=== PATIENT | female | born 1990 | race Caucasian/White ===

== ENCOUNTER 2022-11-01 07:52 | Emergency (ER) | payer MEDICAID, SELFPAY ==
--- NOTE | ~2022-11-01 | CT_ITS ---
EXAMINATION: CT ABDOMEN AND PELVIS WITH CONTRAST CLINICAL INFORMATION: Abdominal pain, nausea and vomiting COMPARISON: None available. TECHNIQUE: Multidetector volumetric images were obtained from the superior aspect of the liver through the pubic symphysis following administration 85 mL of Omnipaque 350 intravenous contrast. Sagittal and coronal reformatted images were obtained on the technologist's workstation. Oral contrast: No This CT examination was performed using dose optimization techniques as appropriate, variously including the following: *Automated exposure control *Adjustment of mA and/or kV according to patient size (this includes techniques or standardized protocols for targeted exams where dose is matched to indication/reason for exam; i.e. extremities or head) *Use of iterative reconstruction technique DLP: 610 mGy-cm FINDINGS: LUNG BASES: The visualized lung bases are unremarkable. LIVER, GALLBLADDER, AND BILIARY TREE: The liver is enlarged measuring 19.7 cm in cephalocaudad dimension but is normal in shape and attenuation. No focal hepatic lesion or biliary ductal dilatation is present. The gallbladder is unremarkable with no evidence of radiopaque gallstones, gallbladder wall thickening, or obvious pericholecystic inflammatory changes. PANCREAS: Unremarkable. SPLEEN: Unremarkable. ADRENAL GLANDS: Unremarkable. KIDNEYS AND URETERS: The kidneys are normal in size, shape, and attenuation. No hydronephrosis, hydroureter, or calculi seen. No perinephric stranding. BLADDER: Unremarkable. GASTROINTESTINAL TRACT: The small and large bowel are unremarkable. The appendix is unremarkable. ABDOMINAL WALL: No significant hernia is appreciated. LYMPH NODES: Normal. VASCULAR: Unremarkable. PELVIC VISCERA: An anteverted uterus is present. Fallopian tube clips are present. An abnormal adnexal mass or free intraperitoneal fluid is not seen. OSSEOUS STRUCTURES: There is mild scoliosis convex to the left. There is mild anterior wedging of T11. No bony destructive lesions. CT/CT abdomen pelvis w IV con IMPRESSION: 1. A cause for the patient's abdominal pain, nausea and vomiting has not been found. 2. Incidental note made of mild hepatomegaly, Fallopian tube clips and mild scoliosis. Fleischner guidelines were followed.
--- NOTE | ~2022-11-01 | US_ITS ---
EXAMINATION: US OBSTETRICAL ULTRASOUND CLINICAL INFORMATION: Vaginal bleeding with positive test COMPARISON: None available.. LMP: Unknown. TECHNIQUE: Both transabdominal and endovaginal scanning was performed. FINDINGS: The uterus appears unremarkable. There is a normal endometrium and a gestational sac is not seen. The right ovary measures 2.5 x 1.7 x 1.6 cm and appears normal. The left ovary measures 2.2 x 1.7 x 1.4 cm and appears normal. A moderate amount of free fluid is present in the pelvis. No ectopic is visualized. US/US OB pelvic and transvaginal IMPRESSION: No intrauterine is identified at this time. Correlation with beta hCG levels is recommended, as nonvisualization of a gestational sac could be due to an early stage of . Alternatively, lack of an intrauterine gestational sac may also be seen with missed or ectopic , although no adnexal mass is seen to strongly suggest ectopic . Short-term sonographic follow-up and serial beta hCG levels are recommended to assess for development of an intrauterine gestational sac.
[2022-11-01 07:59] VITALS: PULSE 81; RESP 18; TEMP 37.2; O2SAT 96; BMI 29.2
--- NOTE | 2022-11-01 08:08 | ED_ITS ---
HPI - General Adult General Chief complaint: Abdominal Pain Stated complaint: Miscarriage Time Seen by Provider: 11/01/22 08:05 Source: patient Mode of arrival: ambulatory Limitations: no limitations History of Present Illness HPI narrative: Patient is a 32 year old assigned female at with a history of 1 miscar riage presenting to the emergency department today with abdominal pain. Patient states that she had a positive test approximately 2 weeks ago and started to have heavy vaginal bleeding since 3AM on Sunday10/30/2022. Started to have worsening right lower quadrant abdominal pain yesterday along with nausea. Reports having Filshie clip type tubal ligation during her 8 years ago. Patient denies any dizziness, lightheadedness, fever, chills, blurry vision, double vision, loss of vision, chest pain, night sweats, pain with urination, increased urinary frequency, increased urinary urgency, blood in her stool, syncope or a near syncopal episode, recent trauma or falls, bowel inc ontinence, bladder incontinence, bowel retention, bladder retention, or any other complaints at this time. Onset (ago): day(s) (2) Location: abdomen Radiation: back Severity: mild Severity scale (1-10): 3 Quality: aching Pain Consistency: constant Relieving factors: none Exacerbating factors: none Associated symptoms: nausea/vomiting Treatments prior to arrival: none Related Data Allergies Allergy/AdvReac Type Severity Reaction Status Date / Time No Known Allergies Allergy Verified 11/01/22 08:02 Review of Systems Review of Systems: Yes all other systems are reviewed and are negative Constitutional: Constitutional: Reports as per HPI Eyes: Eyes: Reports no additional eye complaints, Denies blurry vision, Denies change in vision, Denies diplopia, Denies eye discharge, Denies loss of vision and Denies eye pain ENT: Denies dizziness Cardiovascular: Cardiovascular: Reports no additional cardiovascular complaints and Reports dyspnea Respiratory: Respiratory: Reports dyspnea Gastrointestinal: Gastrointestinal: Reports abdominal pain, Reports nausea and Reports vomiting Genitourinary: Genitourinary: Reports abnormal vaginal bleeding Musculoskeletal: Musculoskeletal: Reports no additional musculoskeletal complaints, Denies numbness and Denies tingling Neurologic: Denies dizziness, Denies loss of vision, Denies numbness and Denies tingling Psychiatric: Psychiatric: Reports no additional psychiatric complaints Endocrine: Endocrine: Reports no additional endocrine complaints Hematologic/Lymphatic: Hematologic/Lymphatic: Reports no additional hematologic/lymphatic complaints Allergic/Immunologic: Allergic/Immunologic: Reports no additional allergic/immunologic complaints [facility] Past Medical History Attestation statement: The following information was validated with the patient. Source: old records reviewed and nursing notes reviewed Social History Social History Advance Directives: No Advance Directives Information Provided: No Physical Exam ED Vital Signs: Vital Signs - 24 hr 11/01/22 07:59 11/01/22 12:00 Temperature 98.9 F 98.1 F Pulse Rate 81 107 H Respiratory Rate 18 14 Blood Pressure 102/65 Pulse Oximetry 96 100 Oxygen Delivery Method Room Air Room Air BMI result Body Mass Index 29.2 Const General: cooperative and in distress (hyperventilating, appears to be in pain) moderate Nutritional Appearance: average body habitus Orientation/consciousness: oriented to person, oriented to place and patient oriented x3 Limitations: no limitations HENMT Head: Yes normal to inspection Ears: hearing grossly normal bilaterally General nose exam: Normal external nose present Face and sinus: Yes normal facial exam Mouth: Normal oral and palatal mucosa present, no drooling and no muffled voice Eyes General: appearance normal, both eyes and all related structures Periorbital: periorbital findings normal Eyelids: Yes eyelids normal Conjunctivae: conjunctivae normal Pupils: Equal, round and reactive pupils present EOM: EOMs intact bilaterally Neck Neck: Yes normal visual inspection Chest Chest palpation & inspection: normal inspection of the chest Resp Effort & Inspection: no audible wheezes and symmetric chest movement Auscultation: clear to auscultation bilaterally Cardio Rate: regular rate Rhythm: regular rhythm GI Inspection: Yes normal to inspection and Yes striae Palpation (GI): Soft to palpation, not firm, Tenderness to palpation present (GI) other (diffuse) and no guarding Neuro General: oriented to person, oriented to place and patient oriented x3 Cranial nerves: Yes Equal, round and reactive pupils present Cognition (Neuro): normal cognition Motor exam (neuro): 5/5 motor strength present throughout Sensory Exam: Normal double simultaneous stimulation for sensation Coordination: [id number] test normal Extrem General: Yes normal to inspection, Yes full ROM and Yes capillary refill normal Psych Appearance: grossly normal Mental Status: mental status grossly normal Affect: normal affect Attitude: cooperative Thought process: Normal thought process present Thought content: Normal thought content present Insight: Good insight present (Psych) Medications Administered Discontinued Medications Generic Name Dose Route Start Last Admin Trade Name Jena PRN Reason Stop Dose Admin Sodium Chloride 1,000 mls @ 999 mls/hr 11/01/22 09:15 11/01/22 12:23 Ns IV 11/01/22 10:15 Infused .Q1H1M SRINIVASA Infusion Iohexol 85 ml 11/01/22 11:23 11/01/22 11:24 Iohexol 350 Mg/Ml 100 Ml Infus..Btl IV 11/01/22 11:24 85 ml ONCE ONE Administration Ketorolac Tromethamine 15 mg 11/01/22 11:05 11/01/22 11:51 Ketorolac Tromethamine 15 Mg/Ml Vial IVPUSH 11/01/22 11:06 15 mg ONCE ONE Administration Lorazepam 1 mg 11/01/22 11:05 11/01/22 11:49 Lorazepam 2 Mg/Ml Vial IVPUSH 11/01/22 11:06 1 mg ONCE ONE Administration Morphine Sulfate 4 mg 11/01/22 08:22 11/01/22 08:27 Morphine Sulfate 4 Mg/Ml Cartridge IVPUSH 11/01/22 08:23 4 mg ONCE ONE Administration Protocol Ondansetron HCl 4 mg 11/01/22 08:22 11/01/22 08:26 Ondansetron Hcl 4 Mg/2 Ml Vial IVPUSH 11/01/22 08:23 4 mg ONCE ONE Administration Ondansetron HCl 4 mg 11/01/22 11:02 11/01/22 11:50 Ondansetron Hcl 4 Mg/2 Ml Vial IVPUSH 11/01/22 11:03 4 mg ONCE ONE Administration Medical Decision Making Medical Decision Making [facility] Narrative: Patient is a 32 year old assigned female at with a history of 1 miscarriage presenting to the emergency department today with abdominal pain. Patient's physical exam showed mild tenderness to palpation of the abdomen but was otherwise unremarkable. Patient's blood work showed a slightly elevated WBC count of 12.2 which is consistent with a stress reaction. Patient's labs otherwise unremarkable. Patient's hcg was negative. Patient's urine showed no acute process. Patient's pelvic US and abdominal/pelvis CT showed no acute process. I explained my physical exam findings as well as all test results to the patient. I answered all questions asked by the patient. Patient received IV pain medication and IV fluids which she stated helped her symptoms significantly. I stressed the importance of the patient taking her medication as prescribed. I stressed the importance of the patient following up with her primary care provider and an OBGYN. I stressed the importance of the patient returning to the emergency department immediately if her symptoms were to worsen or if she were to develop any dizziness, shortness of breath, difficulty breathing, chest pain, blurry vision, loss of vision, nausea, vomiting, abdomina l pain, fever, chills, back pain, or any other complaints. Patient verbalized agreement and understanding with this treatment plan and discharge. Differential Diagnosis Differential Diagnoses: The differential diagnosis associated with the presentation includes abdominal pain Lab Data MDM Lab Attestation statement: I reviewed the patient's lab results. 11/01/22 08:11 11/01/22 08:11 Labs: Lab Results 11/01/22 11/01/22 11/01/22 Range/Units 08:11 08:11 08:11 WBC 12.2 H (4.8-10.8) X10*3/uL RBC 5.57 H (4.20-5.50) X10*6/uL Hgb 17.2 H (12.0-16.0) g/dl Hct 47.6 H (37.0-47.0) % MCV 85.5 (80.0-98.0) fL MCH 30.9 (27.0-33.0) pg MCHC 36.1 H (31.0-35.0) g/dl RDW 12.3 (11.0-16.0) % Plt Count 273 (160-400) X10*3/uL MPV 9.7 (9.4-12.3) fL Immature Gran % (Auto) 0.4 (0.0-0.4) % Neut % (Auto) 91.1 H (45-73) % Lymph % (Auto) 6.7 L (20-40) % [place] % (Auto) 1.5 L (2-11) % Eos % (Auto) 0.1 (0-4) % Baso % (Auto) 0.2 (0-2) % Lymph # (Auto) 0.8 L (1.2-4.9) X10*3/uL [place] # (Auto) 0.2 (0.1-1.2) X10*3/uL Eos # (Auto) 0.0 (0.0-0.4) X10*3/uL Baso # (Auto) 0.0 (0.0-0.2) X10*3/uL Abs Immat Gran (auto) 0.05 H (0.00-0.03) X10*3/uL Absolute Neuts (auto) 11.1 H (2.0-8.3) x10*3/uL Absolute Nucleated RBC 0.000 (0.0-0.012) X10*3/uL Nucleated RBC % (auto) 0.0 (0.0-0.2) /100WBC Smear Tech's Comments VERIFIED Sodium 140 (135-145) mmol/L Potassium 3.6 (3.3-5.1) mmol/L Chloride 100 (96-108) mmol/L Carbon Dioxide 18 L (22-29) mmol/L Anion Gap 26 H (12-20) BUN 28 H (9-16) mg/dL Creatinine 1.08 (0.5-1.4) mg/dL Estim Creat Clear Calc 73.7 Estimated GFR 58 Random Glucose 144 H (60-115) mg/dL Calcium 10.2 (8.4-10.2) mg/dL Total Bilirubin 1.1 H (0.0-1.0) mg/dL Direct Bilirubin 0.2 (0.0-0.5) mg/dL AST 16 (5-31) U/L ALT 11 (0-31) U/L Alkaline Phosphatase 58 (39-117) U/L Total Protein 7.9 (6.5-8.0) g/dL Albumin 4.8 (3.5-5.0) g/dL Lipase 13 (8-78) U/L Beta HCG, Quant < 2 mIU/mL Urine Color Urine Appearance Urine pH (5.0-9.0) Ur Specific [place] (1.005-1.025) Urine Protein (Neg-Trace) mg/dL Urine Glucose (UA) (Negative) mg/dL Urine Ketones (Negative) mg/dL Urine Blood (Negative) Urine Nitrite (Negative) Ur Leukocyte Esterase (Negative) Urine RBC (0-2) /HPF Urine WBC (0-5) /HPF Ur Squamous Epith Cells (0-2) /HPF Urine Bacteria (None Seen) Hyaline Casts (0-2) /LPF Urine Test (NEGATIVE) Blood Type Antibody Screen 11/01/22 11/01/22 11/01/22 Range/Units 09:16 10:29 10:29 WBC (4.8-10.8) X10*3/uL RBC (4.20-5.50) X10*6/uL Hgb (12.0-16.0) g/dl Hct (37.0-47.0) % MCV (80.0-98.0) fL MCH (27.0-33.0) pg MCHC (31.0-35.0) g/dl RDW (11.0-16.0) % Plt Count (160-400) X10*3/uL MPV (9.4-12.3) fL Immature Gran % (Auto) (0.0-0.4) % Neut % (Auto) (45-73) % Lymph % (Auto) (20-40) % [place] % (Auto) (2-11) % Eos % (Auto) (0-4) % Baso % (Auto) (0-2) % Lymph # (Auto) (1.2-4.9) X10*3/uL [place] # (Auto) (0.1-1.2) X10*3/uL Eos # (Auto) (0.0-0.4) X10*3/uL Baso # (Auto) (0.0-0.2) X10*3/uL Abs Immat Gran (auto) (0.00-0.03) X10*3/uL Absolute Neuts (auto) (2.0-8.3) x10*3/uL Absolute Nucleated RBC (0.0-0.012) X10*3/uL Nucleated RBC % (auto) (0.0-0.2) /100WBC Smear Tech's Comments Sodium (135-145) mmol/L Potassium (3.3-5.1) mmol/L Chloride (96-108) mmol/L Carbon Dioxide (22-29) mmol/L Anion Gap (12-20) BUN (9-16) mg/dL Creatinine (0.5-1.4) mg/dL Estim Creat Clear Calc Estimated GFR Random Glucose (60-115) mg/dL Calcium (8.4-10.2) mg/dL Total Bilirubin (0.0-1.0) mg/dL Direct Bilirubin (0.0-0.5) mg/dL AST (5-31) U/L ALT (0-31) U/L Alkaline Phosphatase (39-117) U/L Total Protein (6.5-8.0) g/dL Albumin (3.5-5.0) g/dL Lipase (8-78) U/L Beta HCG, Quant mIU/mL Urine Color Yellow Urine Appearance Sl Cloudy Urine pH 8.0 (5.0-9.0) Ur Specific [place] >= 1.030 H (1.005-1.025) Urine Protein 30 (1+) H (Neg-Trace) mg/dL Urine Glucose (UA) Negative (Negative) mg/dL Urine Ketones 40 (Negative) mg/dL Urine Blood Large (3+) H (Negative) Urine Nitrite Negative (Negative) Ur Leukocyte Esterase Trace H (Negative) Urine RBC >20 H (0-2) /HPF Urine WBC 0-5 (0-5) /HPF Ur Squamous Epith Cells 3-5 (0-2) /HPF Urine Bacteria None Seen (None Seen) Hyaline Casts 0-2 (0-2) /LPF Urine Test NEGATIVE (NEGATIVE) Blood Type A Positive Antibody Screen NEGATIVE Independent Interpretation I performed an independent interpretation of an: Ultrasound and CT Scan Interpretation: My interpretation is in agreement with the radiologist's impression of these imaging studies. EXAMINATION: CT ABDOMEN AND PELVIS WITH CONTRAST? CLINICAL INFORMATION: Abdominal pain, nausea and vomiting? COMPARISON: None available. ? TECHNIQUE: Multidetector volumetric images were obtained from the superior aspect of the liver through the pubic symphysis following administration 85 mL of Omnipaque 350 intravenous contrast. Sagittal and coronal reformatted images were obtained on the technologist's workstation.? Oral contrast: No This CT examination was performed using dose optimization techniques as appropriate, variously including the following: *Automated exposure control *Adjustment of mA and/or kV according to patient size (this includes techniques or standardized protocols for targeted exams where dose is matched to indication/reason for exam; i.e. extremities or head) *Use of iterative reconstruction technique DLP: 610 mGy-cm FINDINGS: LUNG BASES: The visualized lung bases are unremarkable.? LIVER, GALLBLADDER, AND BILIARY TREE: The liver is enlarged measuring 19.7 cm in cephalocaudad dimension but is normal in shape and attenuation.? No focal hepatic lesion or biliary ductal dilatation is present. The gallbladder is unremarkable with no evidence of radiopaque gallstones, gallbladder wall thickening, or obvious pericholecystic inflammatory changes.? PANCREAS: Unremarkable.? SPLEEN: Unremarkable.? ADRENAL GLANDS: Unremarkable.? KIDNEYS AND URETERS: The kidneys are normal in size, shape, and attenuation. No hydronephrosis, hydroureter, or calculi seen. No perinephric stranding. ? BLADDER: Unremarkable.? GASTROINTESTINAL TRACT: The small and large bowel are unremarkable. The appendix is unremarkable.? ABDOMINAL WALL: No significant hernia is appreciated.? LYMPH NODES: Normal. VASCULAR: Unremarkable. PELVIC VISCERA: An anteverted uterus is present. Fallopian tube clips are present. An abnormal adnexal mass or free intraperitoneal fluid is not seen.? OSSEOUS STRUCTURES: There is mild scoliosis convex to the left. There is mild anterior wedging of T11. No bony destructive lesions.? CT/CT abdomen pelvis w IV con IMPRESSION: 1.? A cause for the patient's abdominal pain, nausea and vomiting has not been found. 2.? Incidental note made of mild hepatomegaly, Fallopian tube clips and mild scoliosis. ? Fleischner guidelines were followed. Dictated By: Jin Kerr MD Signed By: Electronically signed by Jin Kerr MD 11/01/22 1236 EXAMINATION:? US OBSTETRICAL ULTRASOUND CLINICAL INFORMATION:? Vaginal bleeding with positive test COMPARISON:? None available..? LMP: Unknown. TECHNIQUE: Both transabdominal and endovaginal scanning was performed. ? FINDINGS: The uterus appears unremarkable. There is a normal endometrium and a gestational sac is not seen. The right ovary measures 2.5 x 1.7 x 1.6 cm and appears normal. The left ovary measures 2.2 x 1.7 x 1.4 cm and appears normal. A moderate amount of free fluid is present in the pelvis. No ectopic is visualized. US/US OB pelvic and transvaginal IMPRESSION: No intrauterine is identified at this time. Correlation with beta hCG levels is recommended, as nonvisualization of a gestational sac could be due to an early stage of . Alternatively, lack of an intrauterine gestational sac may also be seen with missed or ectopic , although no adnexal mass is seen to strongly suggest ectopic . Short-term sonographic follow-up and serial beta hCG levels are recommended to assess for development of an intrauterine gestational sac.? Dictated By: Jin Kerr MD Signed By: Electronically signed by Jin Kerr MD 11/01/22 0935 Discharge Plan Discharge Clinical Impression: Abdominal pain Patient Disposition: Home, Self-Care Instructions: Abdominal Pain (ED) Additional Instructions: Follow up with your primary care provider and your OBGYN. Return to the emergency department immediately if your symptoms worsen or if you develop any dizziness, shortness of breath, difficulty breathing, chest pain, blurry vision, loss of vision, nausea, vomiting, abdominal pain, fever, chills, back pain, or any other complaints. Referrals: [facility] [place] Group] (Call to establish and follow up with a primary care provider. If you already have a primary care provider, please fo llow up with them.) [facility] [[facility]] (Call to establish and follow up wit h a primary care provider. If you already have a primary care provider, please follow up with them.) [facility] [Provider Group] (Call to establish and follow up with a primary care provider. If you already have a primary care provider, please follow up with them.) Saad Maria MD [Physician] - (Call to establish and follow up with an OBGYN provider. ) Stand Alone Forms: Work/School Release Interventions: ED Discharge Assessment Last Done: 11/01/22 13:45 Print Language: Malawian
[2022-11-01 08:18] LABS: Basophils Percent Auto 0.2 % (0-2); Eosinophils Percent Auto 0.1 % (0-4); Hematocrit 47.6 % (37.0-47.0); Hemoglobin 17.2 g/dl (12.0-16.0); Imm Gran Abs Auto 0.05 X10*3/uL (0.00-0.03); Imm Gran Pct Auto 0.4 % (0.0-0.4); Lymphocytes Absolute Auto 0.8 X10*3/uL (1.2-4.9); Lymphocytes Percent Auto 6.7 % (20-40); MANUAL DIFF FLAG SCAN; Mean Corpuscular HGB Conc 36.1 g/dl (31.0-35.0); Mean Corpuscular Hemoglobin 30.9 pg (27.0-33.0); Mean Corpuscular Volume 85.5 fL (80.0-98.0); Mean Platelet Volume 9.7 fL (9.4-12.3); Monocytes Absolute Auto 0.2 X10*3/uL (0.1-1.2); Monocytes Percent Auto 1.5 % (2-11); Neutrophils Absolute Auto 11.1 x10*3/uL (2.0-8.3); Neutrophils Percent Auto 91.1 % (45-73); Platelet Count 273 X10*3/uL (160-400); Red Blood Count 5.57 X10*6/uL (4.20-5.50); Red Cell Distribution Width 12.3 % (11.0-16.0); SCAN SMEAR FLAG 1; White Blood Count 12.2 X10*3/uL (4.8-10.8)
[2022-11-01] MEDS: ondansetron HCL 4 MG/2 ML VIAL IVPUSH ×2 (08:26→11:50)
[2022-11-01] MEDS: Morphine Sulfate 4 MG/ML CARTRIDGE IVPUSH (08:27)
[2022-11-01 08:39] LABS: SLIDE REVIEW VERIFIED
[2022-11-01 08:45] LABS: HCG Quantitative < 2 mIU/mL
[2022-11-01 08:58] LABS: Alanine Aminotransferase 11 U/L (0-31); Albumin Level 4.8 g/dL (3.5-5.0); Alkaline Phosphatase 58 U/L (39-117); Anion Gap 26 (12-20); Aspartate Amino Transferase 16 U/L (5-31); Bilirubin Direct 0.2 mg/dL (0.0-0.5); Bilirubin Total 1.1 mg/dL (0.0-1.0); Blood Urea Nitrogen 28 mg/dL (9-16); Calcium 10.2 mg/dL (8.4-10.2); Carbon Dioxide 18 mmol/L (22-29); Chloride 100 mmol/L (96-108); Creatinine Clr Calc Pharmacy 73.7; Estimated Glomerular Filt Rate 58; Glucose Random 144 mg/dL (60-115); Lipase 13 U/L (8-78); Potassium 3.6 mmol/L (3.3-5.1); Sodium 140 mmol/L (135-145); Total Protein 7.9 g/dL (6.5-8.0)
[2022-11-01] MEDS: 0.9 % Sodium Chloride 1,000 ML 999 ML IV (09:23)
[2022-11-01 10:39] LABS: UPreg QC Valid YES; Urine Pregnancy NEGATIVE (NEGATIVE)
[2022-11-01 10:47] LABS: Color Urine Yellow; Glucose Urine UA Negative (Negative); Leukocyte Esterase Urine Trace (Negative); Nitrite Urine Negative (Negative); Specific Gravity - Urine >= 1.030 (1.005-1.025); UMIC TRIGGER UACC YES; Urine Blood Large (3+) (Negative); Urine Ketones 40 mg/dL (Negative); Urine Protein 30 (1+) mg/dL (Neg-Trace)
[2022-11-01 10:49] LABS: Appearance Urine Sl Cloudy
[2022-11-01 10:51] LABS: Bacteria Urine None Seen (None Seen); Hyaline Casts Urine 0-2 /LPF (0-2); RBC Urine >20 /HPF (0-2); WBC Urine 0-5 /HPF (0-5)
[2022-11-01] MEDS: iohexoL 350 MG/ML 100 ML INFUS..BTL 85 ML IV (11:24)
[2022-11-01] MEDS: LORazepam 2 MG/ML VIAL 1 MG IVPUSH (11:49)
[2022-11-01] MEDS: Ketorolac Tromethamine 15 MG/ML VIAL IVPUSH (11:51)
--- NOTE | 2022-11-01 11:59 | PC.NURSE ---
pt a&ox3, vss, pt medicated per provider order for 5/10 epigastric/mid back pain. no new orders at this time.
[2022-11-01 12:00] VITALS: BP 102/65; PULSE 107; RESP 14; TEMP 36.7; O2SAT 100
== END 2022-11-01 13:49 | disposition home or self-care (01) ==
PROVIDERS: Emergency Provider Emergency Medicine
DX: O20.9 Hemorrhage in early pregnancy, unspecified (principal); Z3A.00 Weeks of gestation of pregnancy not specified; R10.2 Pelvic and perineal pain; Z79.899 Other long term (current) drug therapy
CPT/HCPCS: 36415; 74177; 76801; 76817; 80053; 81001; 81025; 82248; 83690; 84702; 85025; 86850; 86900; 86901; 96361; 96374; 96375; 96376; 99284; J1885; J2060; J2270; J2405; Q9967

== ENCOUNTER 2022-11-01 23:47 | Emergency (ER) | payer MEDICAID, SELFPAY ==
[2022-11-01 23:52] VITALS: BP 142/109; PULSE 97; RESP 24; TEMP 36.5; O2SAT 98; BMI 28.3
[2022-11-02] MEDS: Ondansetron ODT 4 MG TAB.RAPDIS TRANSLINGU
--- NOTE | 2022-11-02 00:10 | PC.NURSE ---
Pt. moved to ED bed 21. On patient monitor at this time.
[2022-11-02 00:11] VITALS: BP 112/57; PULSE 72; RESP 22; TEMP 36.9; O2SAT 95
[2022-11-02 00:23] LABS: MANUAL DIFF FLAG NO
--- NOTE | 2022-11-02 00:23 | ED_ITS ---
HPI - Nausea/Vomiting/Diarrhea General Chief complaint: Nausea/Vomiting/Diarrhea Stated complaint: n/v Time Seen by Provider: 11/02/22 00:23 Source: patient Mode of arrival: ambulatory Limitations: no limitations History of Present Illness HPI Narrative: Patient will history of cannabis abuse just seen earlier today for abdominal pain had a CT scan done which was negative pelvic ultrasound was also negative patient is not comes back as having a diffuse abdominal pain with nausea vomiting patient very anxious on arrival vomited several times prior to arrival patient had similar complaints in the past Related Data Previous Rx's Medication Instructions Recorded lorazepam 1 mg tablet (Ativan) 1 mg PO BID PRN anxiety #20 tabs 11/02/22 ondansetron 4 mg disintegrating 4 mg PO Q6-8H PRN nausea and 11/02/22 tablet vomiting #10 tabs Allergies Allergy/AdvReac Type Severity Reaction Status Date / Time No Known Allergies Allergy Verified 11/01/22 23:58 Review of Systems Review of Systems: Yes all other systems are reviewed and are negative [facility]LY [facility] Social History Social History Alcohol intake: current Alcohol intake frequency: holidays/special occasions only Smoked in Last 30 Days: Yes Use of substances other than those prescribed or required for medical reasons: Yes Substance Use Type: Marijuana Substance Use Frequency: Daily Advance Directives: No Advance Directives Information Provided: Yes Patient : No Physical Exam Vital Signs: Vital Signs: Last Vital Signs Temp 98.8 F 11/02/22 04:50 Pulse 80 11/02/22 04:50 Resp 14 11/02/22 04:50 BP 112/71 11/02/22 04:50 Pulse Ox 95 11/02/22 04:50 O2 Del Method Room Air 11/02/22 04:50 BMI result Body Mass Index 28.3 Appearance: Alert. Oriented X3. Patient very anxious. Eyes: PERRLA, No Nystagmus ENT: Pharynx normal. Oral Mucosa moist Neck: Normal inspection. Neck supple. CVS: Normal heart rate and rhythm. Pulses normal. Respiratory: No respiratory distress. Equal air entry bilateral, no wheezing/rales/rhonchi Abdomen: Soft mild diffuse tenderness Bowel sounds are present, no mass palpable, no CVA tenderness Skin: Skin warm and dry. Normal skin color. Normal skin turgor. Extremities: No lower extremity edema. No calf tenderness Neuro: Oriented X 3. No motor deficit. Medications Administered Discontinued Medications Generic Name Dose Route Start Last Admin Trade Name Jena PRN Reason Stop Dose Admin Sodium Chloride 1,000 mls @ 999 mls/hr 11/02/22 00:25 11/02/22 00:33 Ns IV 11/02/22 01:25 999 mls/hr .Q1H1M ONE Administration Lorazepam 2 mg 11/02/22 00:25 11/02/22 00:32 Lorazepam 2 Mg/Ml Vial IVPUSH 11/02/22 00:26 2 mg ONCE ONE Administration Ondansetron HCl 4 mg 11/01/22 23:58 11/02/22 00:00 Ondansetron Odt 4 Mg Tab.Rapdis TRANSLINGU 11/01/22 23:59 4 mg ONCE ONE Administration Prochlorperazine Edisylate 10 mg 11/02/22 00:25 11/02/22 00:32 Prochlorperazine Edisylate 10 Mg/2 Ml Vial IVPUSH 11/02/22 00:26 10 mg ONCE ONE Administration Medical Decision Making Medical Decision Making MDM Narrative: Patient with increased anxiety and cannabis use with history of similar episodes in the past with vomiting but this time was worse than before patient responded to IV Ativan Compazine taking fluids vital stable discharge patient back to home Lab Data [facility] Lab Attestation statement: I reviewed the patient's lab results. 11/02/22 00:18 11/02/22 00:18 Labs: Lab Results 11/02/22 11/02/22 Range/Units 00:18 00:18 WBC 12.5 H (4.8-10.8) X10*3/uL RBC 5.51 H (4.20-5.50) X10*6/uL Hgb 16.8 H (12.0-16.0) g/dl Hct 46.8 (37.0-47.0) % MCV 84.9 (80.0-98.0) fL MCH 30.5 (27.0-33.0) pg MCHC 35.9 H (31.0-35.0) g/dl RDW 12.4 (11.0-16.0) % Plt Count 256 (160-400) X10*3/uL MPV 9.3 L (9.4-12.3) fL Immature Gran % (Auto) 0.3 (0.0-0.4) % Neut % (Auto) 79.0 H (45-73) % Lymph % (Auto) 13.8 L (20-40) % Dickey % (Auto) 6.5 (2-11) % Eos % (Auto) 0.2 (0-4) % Baso % (Auto) 0.2 (0-2) % Lymph # (Auto) 1.7 (1.2-4.9) X10*3/uL Dickey # (Auto) 0.8 (0.1-1.2) X10*3/uL Eos # (Auto) 0.0 (0.0-0.4) X10*3/uL Baso # (Auto) 0.0 (0.0-0.2) X10*3/uL Abs Immat Gran (auto) 0.04 H (0.00-0.03) X10*3/uL Absolute Neuts (auto) 9.9 H (2.0-8.3) x10*3/uL Absolute Nucleated RBC 0.000 (0.0-0.012) X10*3/uL Nucleated RBC % (auto) 0.0 (0.0-0.2) /100WBC Sodium 139 (135-145) mmol/L Potassium 3.1 L (3.3-5.1) mmol/L Chloride 100 (96-108) mmol/L Carbon Dioxide 21 L (22-29) mmol/L Anion Gap 21 H (12-20) BUN 25 H (9-16) mg/dL Creatinine 1.13 (0.5-1.4) mg/dL Estim Creat Clear Calc 72.0 Estimated GFR 55 Random Glucose 116 H (60-115) mg/dL Calcium 9.2 D (8.4-10.2) mg/dL Total Bilirubin 1.0 (0.0-1.0) mg/dL AST 22 (5-31) U/L ALT 14 (0-31) U/L Alkaline Phosphatase 57 (39-117) U/L Total Protein 7.5 (6.5-8.0) g/dL Albumin 4.6 (3.5-5.0) g/dL Lipase 88 H (8-78) U/L Discharge Plan Discharge Clinical Impression: Cyclical vomiting, Cannabis abuse with cannabis-induced anxiety disorder Patient Disposition: Home, Self-Care Instructions: Acute Nausea and Vomiting (ED), Cannabis Abuse (ED) Additional Instructions: Drink plenty of fluids Do not use cannabis Medicine for anxiety and vomiting as prescribed Prescriptions: New lorazepam [Ativan] 1 mg tablet 1 mg PO BID PRN (Reason: anxiety) Qty: 20 0RF ondansetron 4 mg tablet,disintegrating 4 mg PO Q6-8H PRN (Reason: nausea and vomiting) Qty: 10 0RF
[2022-11-02 00:24] LABS: Basophils Percent Auto 0.2 % (0-2); Eosinophils Percent Auto 0.2 % (0-4); Hematocrit 46.8 % (37.0-47.0); Hemoglobin 16.8 g/dl (12.0-16.0); Imm Gran Abs Auto 0.04 X10*3/uL (0.00-0.03); Imm Gran Pct Auto 0.3 % (0.0-0.4); Lymphocytes Absolute Auto 1.7 X10*3/uL (1.2-4.9); Lymphocytes Percent Auto 13.8 % (20-40); Mean Corpuscular HGB Conc 35.9 g/dl (31.0-35.0); Mean Corpuscular Hemoglobin 30.5 pg (27.0-33.0); Mean Corpuscular Volume 84.9 fL (80.0-98.0); Mean Platelet Volume 9.3 fL (9.4-12.3); Monocytes Absolute Auto 0.8 X10*3/uL (0.1-1.2); Monocytes Percent Auto 6.5 % (2-11); Neutrophils Absolute Auto 9.9 x10*3/uL (2.0-8.3); Platelet Count 256 X10*3/uL (160-400); Red Blood Count 5.51 X10*6/uL (4.20-5.50); Red Cell Distribution Width 12.4 % (11.0-16.0); White Blood Count 12.5 X10*3/uL (4.8-10.8)
[2022-11-02] MEDS: LORazepam 2 MG/ML VIAL IVPUSH (00:32)
[2022-11-02] MEDS: Prochlorperazine Edisylate 10 MG/2 ML VIAL IVPUSH (00:32)
[2022-11-02] MEDS: 0.9 % Sodium Chloride 1,000 ML 999 ML IV (00:33)
[2022-11-02 00:53] LABS: Alanine Aminotransferase 14 U/L (0-31); Albumin Level 4.6 g/dL (3.5-5.0); Alkaline Phosphatase 57 U/L (39-117); Anion Gap 21 (12-20); Aspartate Amino Transferase 22 U/L (5-31); Blood Urea Nitrogen 25 mg/dL (9-16); Calcium 9.2 mg/dL (8.4-10.2); Carbon Dioxide 21 mmol/L (22-29); Chloride 100 mmol/L (96-108); Estimated Glomerular Filt Rate 55; Glucose Random 116 mg/dL (60-115); Lipase 88 U/L (8-78); Potassium 3.1 mmol/L (3.3-5.1); Sodium 139 mmol/L (135-145); Total Protein 7.5 g/dL (6.5-8.0)
[2022-11-02 02:16] VITALS: BP 111/63; PULSE 87; RESP 15; TEMP 36.8; O2SAT 96
[2022-11-02 04:50] VITALS: BP 112/71; PULSE 80; RESP 14; TEMP 37.1; O2SAT 95
== END 2022-11-02 05:46 | disposition home or self-care (01) ==
PROVIDERS: Emergency Provider Internal Medicine
DX: F12.19 Cannabis abuse with unspecified cannabis-induced disorder (principal); R11.15 Cyclical vomiting syndrome unrelated to migraine; F41.1 Generalized anxiety disorder; F43.0 Acute stress reaction; Z79.899 Other long term (current) drug therapy
CPT/HCPCS: 36415; 80053; 83690; 85025; 96374; 96375; 99284; J2060

== ENCOUNTER 2023-03-03 09:15 | Emergency (ER) | payer MEDICAID, SELFPAY ==
[2023-03-03 09:24] VITALS: BP 129/63; PULSE 73; RESP 22; TEMP 36.7; O2SAT 96; BMI 25.1
[2023-03-03] MEDS: Ondansetron ODT 4 MG TAB.RAPDIS TRANSLINGU (09:34)
--- NOTE | 2023-03-03 09:36 | PC.NURSE ---
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
--- NOTE | 2023-03-03 09:46 | ECG_ITS ---
Test Reason : Medication Blood Pressure : / mmHG Vent. Rate : 065 BPM Atrial Rate : 065 BPM P-R Int : 160 ms QRS Dur : 106 ms QT Int : 424 ms P-R-T Axes : 080 050 048 degrees QTc Int : 440 ms Sinus rhythm with Sinus Arrhythmia Otherwise normal ECG No previous ECGs available Referred By: Camilla Rosario Electronically Signed By:ARTURO FAROOQ MD
--- NOTE | 2023-03-03 10:20 | ED.NAVMDI ---
HPI - Nausea/Vomiting/Diarrhea General Chief complaint: Abdominal Pain Stated complaint: symptoms from covid shot ? Time Seen by Provider: 03/03/23 09:45 Source: patient Mode of arrival: ambulatory History of Present Illness HPI Narrative: 33-year-old female who has a history of earlier down loss and presents after onset of repeated episodes of nausea and vomiting but denies any preceding abdominal pain, fever she is currently having chills during the nausea and vomiting as well as burning from the upper stomach into the chest, sweating but denies any urinary symptoms or diarrhea. Related Data Previous Rx's Medication Instructions Recorded lorazepam 1 mg tablet (Ativan) 1 mg PO BID PRN anxiety #20 tabs 11/02/22 ondansetron 4 mg disintegrating 4 mg PO Q6-8H PRN nausea and 11/02/22 tablet vomiting #10 tabs Allergies Allergy/AdvReac Type Severity Reaction Status Date / Time No Known Allergies Allergy Verified 11/01/22 23:58 Review of Systems Review of Systems: Pertinent positives and negatives as stated in HPI PMFSH Past Medical History Source: nursing notes reviewed Social History Social History Alcohol intake: current Alcohol intake frequency: holidays/special occasions only Substance Use Type: Marijuana Advance Directives: No Physical Exam Vital Signs: Vital Signs: Last Vital Signs Temp 98.0 F 03/03/23 09:24 Pulse 88 03/03/23 10:27 Resp 19 03/03/23 10:27 BP 129/63 03/03/23 09:24 Pulse Ox 96 03/03/23 09:24 O2 Del Method Room Air 03/03/23 09:24 BMI result Body Mass Index 25.1 VITAL SIGNS: Reviewed. GENERAL: Well developed, well nourished, in no acute distress. HEAD: Normocephalic/atraumatic EYES: PERRLA, EOMI EARS: Ext canals without abnormality NOSE: Nares patent bilateral OROPHARYNX: no oral lesions noted, posterior pharynx clear NECK: Supple, no adenopathy LUNGS: Normal breath sounds. No adventitious sounds or accessory muscle use. SpO2<96> CARDIOVASCULAR: Regular rate and rhythm without noted murmurs ABDOMEN: Soft, non-tender, non-distended with bowel sounds. MUSCULOSKELETAL: No tenderness, deformities, or effusions noted on gross inspection. EXTREMITIES: No cyanosis, clubbing or edema. SKIN: Inspection of the skin reveals no rashes, but diaphragm NEUROLOGIC: Alert and oriented x 4. Strength and sensation to light touch were grossly intact x 4. Medications Administered Discontinued Medications Generic Name Dose Route Start Last Admin Trade Name Freq PRN Reason Stop Dose Admin Diphenhydramine HCl 25 mg 03/03/23 09:45 03/03/23 10:24 Diphenhydramine Hcl 50 Mg/Ml Vial IVPUSH 03/03/23 09:46 25 mg ONCE ONE Administration Haloperidol Lactate 2.5 mg 03/03/23 10:39 03/03/23 10:46 Haloperidol Lactate 5 Mg/Ml Vial IM 03/03/23 10:40 2.5 mg ONCE ONE Administration Sodium Chloride 1,000 mls @ 999 mls/hr 03/03/23 09:45 03/03/23 12:12 Ns IV 03/03/23 10:45 Infused .Q1H1M SRINIVASA Infusion Sodium Chloride 1,000 mls @ 999 mls/hr 03/03/23 10:45 03/03/23 11:58 Ns IV 03/03/23 11:45 999 mls/hr .Q1H1M SRINIVASA Administration Lidocaine/Diphenhydr/Alum/Mg/Simeth 10 ml 03/03/23 12:43 03/03/23 12:55 Mag&Al/Sim/Diphenhyd/Lidocaine 10 Ml Oral.Susp PO 03/03/23 12:44 10 ml ONCE ONE Administration Protocol Metoclopramide HCl 10 mg 03/03/23 09:45 03/03/23 10:25 Metoclopramide Hcl 10 Mg/2 Ml Vial IVPUSH 03/03/23 09:46 10 mg ONCE ONE Administration Ondansetron HCl 4 mg 03/03/23 09:31 03/03/23 09:34 Ondansetron Odt 4 Mg Tab.Rapdis TRANSLINGU 03/03/23 09:32 4 mg ONCE ONE Administration Ondansetron HCl 4 mg 03/03/23 09:45 03/03/23 10:24 Ondansetron Hcl 4 Mg/2 Ml Vial IVPUSH 03/03/23 09:46 4 mg ONCE ONE Administration Prochlorperazine Edisylate 10 mg 03/03/23 11:38 03/03/23 11:50 Prochlorperazine Edisylate 10 Mg/2 Ml Vial IVPUSH 03/03/23 11:39 10 mg ONCE ONE Administration Medical Decision Making Medical Decision Making [facility] Narrative: This is a 33-year-old female with known cyclical vomiting history, I find no evidence to suggest preceding evidence of cholecystitis, pancreatitis, pneumonia and patient denies any diarrhea, DDX: Cyclical vomiting, dehydration. Review of all investigations demonstrates a stress leukocytosis from nausea and vomiting without left shift and no anemia or thrombocytopenia. Chemistry indices demonstrate derangements consistent with patient's significant nausea and vomiting with an acidosis likely secondary to dehydration and patient has received IV fluid resuscitation in addition to several antiemetics (Zofran, Reglan/Benadryl, Haldol, Compazine). Did evaluate patient with EKG prior to administration of the QT prolonging agents. Otherwise, chemistry indices do not demonstrate any ANNE, or like to light abnormalities. Urinalysis is negative for UTI and there is some hematuria and noted, however she has no complaints flank pain or pelvic pain. UDS is positive for marijuana and thought to play a role in patient's nausea and vomiting. All results and findings discussed with her at bedside. 1404: On re-evaluation patient is tolerating oral intake and is otherwise discharged home with presumptive diagnosis of cyclical vomiting especially given the absence of infectious signs or symptoms and the absence abdominal pain prior to presentation. Differential Diagnosis Differential Diagnoses: The differential diagnosis associated with the presentation includes Please see the discussion above Admission/Observation Consideration of admission/observation: Escalation of care including admission/observation considered Please see the discussion above Lab Data [facility] Lab Attestation statement: I reviewed the patient's lab results. Please see the discussion above 03/03/23 10:22 03/03/23 10:22 Labs: Lab Results 03/03/23 03/03/23 03/03/23 Range/Units 10:22 10:22 11:51 WBC 11.5 H (4.8-10.8) X10*3/uL RBC 5.10 (4.20-5.50) X10*6/uL Hgb 15.6 (12.0-16.0) g/dl Hct 45.4 (37.0-47.0) % MCV 89.0 (80.0-98.0) fL MCH 30.6 (27.0-33.0) pg MCHC 34.4 (31.0-35.0) g/dl RDW 12.4 (11.0-16.0) % Plt Count 272 (160-400) X10*3/uL MPV 9.6 (9.4-12.3) fL Immature Gran % (Auto) 0.4 (0.0-0.4) % Neut % (Auto) 69.6 (45-73) % Lymph % (Auto) 21.7 (20-40) % Barber % (Auto) 3.6 (2-11) % Eos % (Auto) 3.9 (0-4) % Baso % (Auto) 0.8 (0-2) % Lymph # (Auto) 2.5 (1.2-4.9) X10*3/uL Barber # (Auto) 0.4 (0.1-1.2) X10*3/uL Eos # (Auto) 0.5 H (0.0-0.4) X10*3/uL Baso # (Auto) 0.1 (0.0-0.2) X10*3/uL Abs Immat Gran (auto) 0.05 H (0.00-0.03) X10*3/uL Absolute Neuts (auto) 8.0 (2.0-8.3) x10*3/uL Absolute Nucleated RBC 0.000 (0.0-0.012) X10*3/uL Nucleated RBC % (auto) 0.0 (0.0-0.2) /100WBC Sodium 141 (135-145) mmol/L Potassium 3.8 D (3.3-5.1) mmol/L Chloride 109 H (96-108) mmol/L Carbon Dioxide 14 L (22-29) mmol/L Anion Gap 22 H (12-20) BUN 23 H (9-16) mg/dL Creatinine 0.76 (0.5-1.4) mg/dL Estim Creat Clear Calc 100.5 Estimated GFR > 60 Random Glucose 150 H (60-115) mg/dL Calcium 10.2 D (8.4-10.2) mg/dL Total Bilirubin 0.5 (0.0-1.0) mg/dL AST 15 (5-31) U/L ALT 9 (0-31) U/L Alkaline Phosphatase 50 (39-117) U/L Total Protein 7.5 (6.5-8.0) g/dL Albumin 4.4 (3.5-5.0) g/dL Urine Color Yellow Urine Appearance Hazy Urine pH 6.0 (5.0-9.0) Ur Specific Shelby >= 1.030 H (1.005-1.025) Urine Protein 30 (1+) H (Neg-Trace) mg/dL Urine Glucose (UA) Negative (Negative) mg/dL Urine Ketones 15 (Negative) mg/dL Urine Blood Large (3+) H (Negative) Urine Nitrite Negative (Negative) Ur Leukocyte Esterase Negative (Negative) Urine RBC 0-2 (0-2) /HPF Urine WBC 0-5 (0-5) /HPF Ur Squamous Epith Cells 6-10 (0-2) /HPF Calcium Oxalate Crystal Present Urine Bacteria None Seen (None Seen) Hyaline Casts 0-2 (0-2) /LPF Urine Test (NEGATIVE) Urine Opiates Screen (Not Detect) Urine Fentanyl Screen (Not Detect) Ur Barbiturates Screen (Not Detect) Ur Phencyclidine Scrn (Not Detect) Ur Amphetamines Screen (Not Detect) U Benzodiazepines Scrn (Not Detect) Urine Cocaine Screen (Not Detect) U Marijuana (THC) Screen (Not Detect) 03/03/23 03/03/23 Range/Units 11:51 11:51 WBC (4.8-10.8) X10*3/uL RBC (4.20-5.50) X10*6/uL Hgb (12.0-16.0) g/dl Hct (37.0-47.0) % MCV (80.0-98.0) fL MCH (27.0-33.0) pg MCHC (31.0-35.0) g/dl RDW (11.0-16.0) % Plt Count (160-400) X10*3/uL MPV (9.4-12.3) fL Immature Gran % (Auto) (0.0-0.4) % Neut % (Auto) (45-73) % Lymph % (Auto) (20-40) % Barber % (Auto) (2-11) % Eos % (Auto) (0-4) % Baso % (Auto) (0-2) % Lymph # (Auto) (1.2-4.9) X10*3/uL Barber # (Auto) (0.1-1.2) X10*3/uL Eos # (Auto) (0.0-0.4) X10*3/uL Baso # (Auto) (0.0-0.2) X10*3/uL Abs Immat Gran (auto) (0.00-0.03) X10*3/uL Absolute Neuts (auto) (2.0-8.3) x10*3/uL Absolute Nucleated RBC (0.0-0.012) X10*3/uL Nucleated RBC % (auto) (0.0-0.2) /100WBC Sodium (135-145) mmol/L Potassium (3.3-5.1) mmol/L Chloride (96-108) mmol/L Carbon Dioxide (22-29) mmol/L Anion Gap (12-20) BUN (9-16) mg/dL Creatinine (0.5-1.4) mg/dL Estim Creat Clear Calc Estimated GFR Random Glucose (60-115) mg/dL Calcium (8.4-10.2) mg/dL Total Bilirubin (0.0-1.0) mg/dL AST (5-31) U/L ALT (0-31) U/L Alkaline Phosphatase (39-117) U/L Total Protein (6.5-8.0) g/dL Albumin (3.5-5.0) g/dL Urine Color Urine Appearance Urine pH (5.0-9.0) Ur Specific Shelby (1.005-1.025) Urine Protein (Neg-Trace) mg/dL Urine Glucose (UA) (Negative) mg/dL Urine Ketones (Negative) mg/dL Urine Blood (Negative) Urine Nitrite (Negative) Ur Leukocyte Esterase (Negative) Urine RBC (0-2) /HPF Urine WBC (0-5) /HPF Ur Squamous Epith Cells (0-2) /HPF Calcium Oxalate Crystal Urine Bacteria (None Seen) Hyaline Casts (0-2) /LPF Urine Test NEGATIVE (NEGATIVE) Urine Opiates Screen Not Detected (Not Detect) Urine Fentanyl Screen Not Detected (Not Detect) Ur Barbiturates Screen Not Detected (Not Detect) Ur Phencyclidine Scrn Not Detected (Not Detect) Ur Amphetamines Screen Not Detected (Not Detect) U Benzodiazepines Scrn Not Detected (Not Detect) Urine Cocaine Screen Not Detected (Not Detect) U Marijuana (THC) Screen POSITIVE H (Not Detect) Independent Interpretation I performed an independent interpretation of an: EKG Interpretation: Normal sinus rhythm, HR-65, no STEMI, RI/QTC are within normal limits, QRS-106. External Record Review External record reviewed: Outpatient record and Prior outpatient labs Critical Care Time Critical Care Time Critical Care Time: Yes Total Critical Care Time: 30 Attestation: I personally attest to this time spent taking care of the patient. Discharge Plan Discharge Clinical Impression: Cyclical vomiting, Cannabis use disorder Patient Disposition: Home, Self-Care Instructions: Cyclic Vomiting Syndrome (ED) Additional Instructions: 1. Your suffering from likely cyclical vomiting which may be contributed to by cannabis use. Recommend attempting to scale down the amount that you use to see if you have fewer episodes of nausea and vomiting. Your workup today has otherwise been negative. 2. Please continue to rehydrate especially with water. Return to the ER for any worsening symptoms. Prescriptions: No Action lorazepam [Ativan] 1 mg tablet 1 mg PO BID PRN (Reason: anxiety) Qty: 20 0RF ondansetron 4 mg tablet,disintegrating 4 mg PO Q6-8H PRN (Reason: nausea and vomiting) Qty: 10 0RF
[2023-03-03] MEDS: ondansetron HCL 4 MG/2 ML VIAL IVPUSH (10:24)
[2023-03-03] MEDS: diphenhydrAMINE HCL 50 MG/ML VIAL 25 MG IVPUSH (10:24)
[2023-03-03] MEDS: 0.9 % Sodium Chloride 1,000 ML 999 ML IV ×2 (10:25→11:58)
[2023-03-03] MEDS: Metoclopramide HCl 10 MG/2 ML VIAL IVPUSH (10:25)
[2023-03-03 10:26] LABS: MANUAL DIFF FLAG NO
[2023-03-03 10:27] VITALS: PULSE 88; RESP 19
[2023-03-03 10:31] LABS: Basophils Absolute Auto 0.1 X10*3/uL (0.0-0.2); Basophils Percent Auto 0.8 % (0-2); Eosinophils Absolute Auto 0.5 X10*3/uL (0.0-0.4); Eosinophils Percent Auto 3.9 % (0-4); Hematocrit 45.4 % (37.0-47.0); Hemoglobin 15.6 g/dl (12.0-16.0); Imm Gran Abs Auto 0.05 X10*3/uL (0.00-0.03); Imm Gran Pct Auto 0.4 % (0.0-0.4); Lymphocytes Absolute Auto 2.5 X10*3/uL (1.2-4.9); Lymphocytes Percent Auto 21.7 % (20-40); Mean Corpuscular HGB Conc 34.4 g/dl (31.0-35.0); Mean Corpuscular Hemoglobin 30.6 pg (27.0-33.0); Mean Platelet Volume 9.6 fL (9.4-12.3); Monocytes Absolute Auto 0.4 X10*3/uL (0.1-1.2); Monocytes Percent Auto 3.6 % (2-11); Neutrophils Percent Auto 69.6 % (45-73); Platelet Count 272 X10*3/uL (160-400); Red Cell Distribution Width 12.4 % (11.0-16.0); White Blood Count 11.5 X10*3/uL (4.8-10.8)
[2023-03-03] MEDS: Haloperidol Lactate 5 MG/ML VIAL 2.5 MG IM (10:46)
[2023-03-03 10:47] LABS: Alanine Aminotransferase 9 U/L (0-31); Albumin Level 4.4 g/dL (3.5-5.0); Alkaline Phosphatase 50 U/L (39-117); Anion Gap 22 (12-20); Aspartate Amino Transferase 15 U/L (5-31); Bilirubin Total 0.5 mg/dL (0.0-1.0); Blood Urea Nitrogen 23 mg/dL (9-16); Calcium 10.2 mg/dL (8.4-10.2); Carbon Dioxide 14 mmol/L (22-29); Chloride 109 mmol/L (96-108); Creatinine Clr Calc Pharmacy 100.5; Estimated Glomerular Filt Rate > 60; Glucose Random 150 mg/dL (60-115); Potassium 3.8 mmol/L (3.3-5.1); Sodium 141 mmol/L (135-145); Total Protein 7.5 g/dL (6.5-8.0)
[2023-03-03] MEDS: Prochlorperazine Edisylate 10 MG/2 ML VIAL IVPUSH (11:50)
--- NOTE | 2023-03-03 11:58 | PC.NURSE ---
assumed care of pt at 1100, pt pulled out initial IV, cont's to have nausea/vomiting/abd pain after medication, 20G IV placed left AC, NS restarted w additional liter, medicated per OCT. urine sample obtained and sent to lab. no new orders at this time.
[2023-03-03 12:10] LABS: Amphetamine Screen Urine Not Detected (Not Detect); Barbiturates, Urine Not Detected (Not Detect); Benzodiazepines Screen Urine Not Detected (Not Detect); Cannabinoid Screen Urine POSITIVE (Not Detect); Cocaine Screen Urine Not Detected (Not Detect); Fentanyl, urine Not Detected (Not Detect); Opiate Screen Urine Not Detected (Not Detect); Phencyclidine Screen Urine Not Detected (Not Detect)
[2023-03-03 12:16] LABS: UPreg QC Valid YES; Urine Pregnancy NEGATIVE (NEGATIVE)
[2023-03-03 12:17] LABS: Appearance Urine Hazy; Color Urine Yellow; Glucose Urine UA Negative (Negative); Leukocyte Esterase Urine Negative (Negative); Nitrite Urine Negative (Negative); Specific Gravity - Urine >= 1.030 (1.005-1.025); UMIC TRIGGER UACC YES; Urine Blood Large (3+) (Negative); Urine Ketones 15 mg/dL (Negative); Urine Protein 30 (1+) mg/dL (Neg-Trace)
[2023-03-03 12:29] LABS: Bacteria Urine None Seen (None Seen); Calcium Oxalate Crystals Urine Present; RBC Urine 0-2 /HPF (0-2); WBC Urine 0-5 /HPF (0-5)
[2023-03-03 12:30] LABS: Hyaline Casts Urine 0-2 /LPF (0-2)
--- NOTE | 2023-03-03 12:32 | PC.NURSE ---
pt resting with eyes closed, RR even and unlabored, no vomiting at this time.
[2023-03-03] MEDS: Mag&Al/Sim/Diphenhyd/Lidocaine 10 ML ORAL.SUSP PO (12:55)
--- NOTE | 2023-03-03 12:57 | PC.NURSE ---
pt medicated per MAR for abd pain, saltines/gerda odilon/water given for PO challenge.
[2023-03-03 14:25] VITALS: BP 147/72; PULSE 76; RESP 19; O2SAT 97
== END 2023-03-03 14:27 | disposition home or self-care (01) ==
PROVIDERS: Emergency Provider Student in an Organized Health Care Education/Training Program
DX: R11.15 Cyclical vomiting syndrome unrelated to migraine (principal); F12.90 Cannabis use, unspecified, uncomplicated
CPT/HCPCS: 36415; 80053; 80307; 81001; 81003; 81025; 85025; 93005; 96361; 96372; 96374; 96375; 99284; J1200; J2405; J2765

== ENCOUNTER → 2023-03-03 09:46 | Outpatient (BNV) | payer MEDICAID, SELFPAY | PROVIDERS: Emergency Provider Student in an Organized Health Care Education/Training Program; Visit Provider Internal Medicine Cardiovascular Disease | DX: R07.89 Other chest pain (principal) | CPT/HCPCS: 93010 ==

== ENCOUNTER 2023-05-07 09:48 | Emergency (ER) | payer MEDICAID, SELFPAY ==
--- NOTE | 2023-05-07 11:05 | PC.NURSE ---
PER REGISTRATION - PT STATES THAT SHE WAS ONLY HERE FOR A WORK NOTE BECAUSE SHE WAS FEELING SICK OVER THE WEEK-END. SHE BEGAN TO STATE THAT THE [place] LAW STATES THAT SHE CAN A WORK NOTE WITHOUT BEING SEEN BY A PROVIDER. PT THEN AMBULATED OUT OF THE ER WAITING ROOM.
== END 2023-05-07 12:17 | disposition left against medical advice (07) ==
LOC: HO.ED 12:04
PROVIDERS: Emergency Provider Emergency Medicine
DX: R11.10 Vomiting, unspecified (principal)

== ENCOUNTER 2023-08-04 12:10 | Emergency (ER) | payer MEDICAID, SELFPAY ==
--- NOTE | 2023-08-04 13:00 | ED_ITS ---
HPI - General Adult General Chief complaint: Upper Respiratory Symptoms Stated complaint: Covid exposure/Sore throat cough Time Seen by Provider: 08/04/23 14:32 Source: patient Mode of arrival: ambulatory Limitations: no limitations History of Present Illness HPI narrative: patient is a 33 year female who presents to the emergency department for evaluation of URI symptoms. She states she predominantly came here today to receive a work note. She states that she was exposed to her family members who have tested positive for COVID in addition to coworkers who have tested positive for the flu. Her symptoms began about 2 days ago after being exposed to her coworkers, and then subsequent exposure to her family members after that. She is experiencing sore throat, nonproductive cough, nausea, chills, tactile fever. Denies dizziness, lightheadedness, nausea, vomiting, chest shortness of breath, numbness or tingling of the extremities. Related Data Previous Rx's Medication Instructions Recorded lorazepam 1 mg tablet (Ativan) 1 mg PO BID PRN anxiety #20 tabs 11/02/22 ondansetron 4 mg disintegrating 4 mg PO Q6-8H PRN nausea and 11/02/22 tablet vomiting #10 tabs ondansetron HCl 4 mg tablet 4 mg PO Q8H PRN nausea and 03/03/23 vomiting 4 days #10 tabs Allergies Allergy/AdvReac Type Severity Reaction Status Date / Time No Known Allergies Allergy Verified 11/01/22 23:58 Review of Systems Review of Systems: Yes all other systems are reviewed and are negative PMFSH Past Medical History Attestation statement: The following information was validated with the patient. Source: old records reviewed Social History Social History Alcohol intake: current Alcohol intake frequency: holidays/special occasions only Substance Use Type: Marijuana Advance Directives: No Advance Directives Information Provided: No Physical Exam ED Vital Signs: Vital Signs - 24 hr 08/04/23 13:02 Temperature 97.6 F Pulse Rate 87 Respiratory Rate 18 Blood Pressure 105/62 Pulse Oximetry 94 Oxygen Delivery Method Room Air BMI result Body Mass Index 27.5 Appearance: Alert.?Oriented to person, place and time. No acute distress.?Normal affect. Eyes: Pupils equal, round and reactive to light.? ENT: Pharynx normal.?? TM normal bilaterally Neck: Normal inspection.? Neck supple.?? no cervical lymphadenopathy CVS: Heart sounds normal. Normal heart rate and rhythm.? Pulses normal.?? Respiratory: No respiratory distress.? Lung sounds clear to auscultation bilaterally?? Abdomen: Soft and non-tender. Normoactive bowel sounds. Skin: Skin warm and dry.? Normal skin color.? Extremities: No lower extremity edema.? No calf ttp? Neuro: Moves all extremities spontaneously. Sensation intact bilaterally. No focal neuro deficits. Ambulates with normal steady gait. Course Course Course Narrative: RME- 33 year old female presents for evaluation of cough and sore throat. REports + COVID contacts. Plan for viral swab and strep testing Medical Decision Making Medical Decision Making [facility] Narrative: Patient is a 33-year-old female, presenting for evaluation of upper respiratory symptoms. COVID-19 and influenza a testing are both positive. Symptom onset 2-3 days ago after exposure to coworkers who tested positive for influenza, at this time she would not be a candidate for Tamiflu. She is also COVID- 19 positive she reports exposure to her family after initial onset. Reviewed CDC guidelines, will provide return to work no for 5 days, after her exposure which was yesterday with soonest return date of 08/08/2022. At this time history and physical exam not consistent with ACS/PE/pneumonia. Well-appearing, nontoxic, afebrile, no tachycardia or tachypnea/hypoxia. Speaking clear full sentences, ambulatory with steady gait. Discussed conservative treatment including rest, hydration, Tylenol/ibuprofen as needed for fever and body aches, saline nasal spray, humidifier, iaku-hyl-xgfobpt cold medication. Advised to follow-up with primary care provider as needed, discussed reasons to return back to the emergency department. All questions were answered. Patient discharged home in stable condition. Differential Diagnosis Differential Diagnoses: The differential diagnosis associated with the presentation includes ( As noted above) Admission/Observation Consideration of admission/observation: Escalation of care including admission/observation considered ( as noted above) Lab Data [facility] Lab Attestation statement: I reviewed the patient's lab results. Labs: Lab Results 08/04/23 Range/Units 13:32 Influenza Type A (PCR) NEGATIVE (Negative) Influenza Type B (PCR) POSITIVE A (Negative) RSV RNA Qual (PCR) NEGATIVE (Negative) SARS-CoV-2 RNA (RT-PCR) POSITIVE A (Negative) S. pyogenes GrpA JUAN Negative (Negative) External Record Review External record reviewed: Outpatient record Tests considered The following testing was considered but not selected: CXR deferred, see narrative above Prescription Management I considered prescription management with: Antiviral ( see narrative above) Discharge Plan Discharge Clinical Impression: Influenza, COVID-19 Patient Disposition: Home, Self-Care Instructions: Influenza (ED), COVID-19 (Coronavirus Disease 2019) (ED) Additional Instructions: Be sure to rest, stay well hydrated drinking plenty of fluids, eat small frequent meals. Tylenol/ibuprofen can be used as needed for fever/pain. Jkoq-mry-upjenzh cold medications may be helpful as well for symptoms. Saline nasal spray, humidifier may be helpful for nasal congestion. You may return to the emergency department with any new or worsening symptoms or concerns. Follow-up with your primary care provider as needed. Should remain out of school/ work until symptoms have resolved and have been without a fever for 24 hours without the use of Tylenol or ibuprofen. Prescriptions: No Action lorazepam [Ativan] 1 mg tablet 1 mg PO BID PRN (Reason: anxiety) Qty: 20 0RF ondansetron 4 mg tablet,disintegrating 4 mg PO Q6-8H PRN (Reason: nausea and vomiting) Qty: 10 0RF ondansetron HCl 4 mg tablet 4 mg PO Q8H PRN (Reason: nausea and vomiting) 4 Days Qty: 10 0RF Referrals: Physician,None [Primary Care Provider] - Stand Alone Forms: Work/School Release
[2023-08-04 13:02] VITALS: BP 105/62; PULSE 87; RESP 18; TEMP 36.4; O2SAT 94; BMI 27.5
[2023-08-04 13:49] LABS: IDNOW Serial# 08D9AD1C; Strep A Nucleic Acid Negative (Negative)
[2023-08-04 14:19] LABS: Influenza A PCR NEGATIVE (Negative); Influenza B PCR POSITIVE (Negative); Resp Syncy Virus RNA Qual PCR NEGATIVE (Negative); SARS COV2 PCR INHOUSE POSITIVE (Negative)
== END 2023-08-04 15:54 | disposition home or self-care (01) ==
PROVIDERS: Physician Assistant; Emergency Provider Emergency Medicine
DX: J10.1 Influenza due to other identified influenza virus with other respiratory manifestations (principal); U07.1 COVID-19
CPT/HCPCS: 0241U; 87651; 99283

== ENCOUNTER 2024-08-01 09:21 | Emergency (ER) | payer MEDICAID, SELFPAY ==
[2024-08-01 09:31] VITALS: BP 123/95; PULSE 63; RESP 18; TEMP 37.1; O2SAT 99; BMI 24.8
--- NOTE | 2024-08-01 10:11 | ED_ITS ---
HPI - Nausea/Vomiting/Diarrhea General Chief complaint: Nausea/Vomiting/Diarrhea Stated complaint: Abd pain, vomiting Time Seen by Provider: 08/01/24 10:01 Source: patient Mode of arrival: ambulatory Limitations: no limitations History of Present Illness HPI Narrative: This is 34 years old the patient presented to the emergency department with a chief complaint of nausea vomiting for the last couple of the his accident. Patient states she has the symptoms intermittently for about 2 years MD elicited complaint: nausea and vomiting Pertinent past history: cyclical vomiting Onset (ago): day(s) (2) Description of vomiting: watery Description of diarrhea: watery Associated nausea: No Associated abdominal pain: No Location of pain: none Quality: cramping Exacerbating factors: none Related Data Previous Rx's ?Medication ?Instructions ?Recorded lorazepam 1 mg tablet (Ativan) 1 mg PO BID PRN anxiety #20 tabs 11/02/22 ondansetron 4 mg disintegrating 4 mg PO Q6-8H PRN nausea and 11/02/22 tablet vomiting #10 tabs ondansetron HCl 4 mg tablet 4 mg PO Q8H PRN nausea and 03/03/23 vomiting 4 days #10 tabs ondansetron 4 mg disintegrating 4 mg PO Q8H prn nausea 4 days #12 08/01/24 tablet tabs Allergies Allergy/AdvReac Type Severity Reaction Status Date / Time No Known Allergies Allergy Verified 08/01/24 09:38 Review of Systems 2 Constitutional: Constitutional: Reports no additional constitutional complaints ENT: Reports system reviewed and no additional complaints, except as documented Respiratory: Respiratory: Reports no additional respiratory complaints Gastrointestinal: Gastrointestinal: Denies nausea [facility] History [facility] Narrative: cyclic vomiting Social History Social History Alcohol intake: current Alcohol intake frequency: holidays/special occasions only Smoked in Last 30 Days: No Substance Use Type: Marijuana Advance Directives: No Advance Directives Information Provided: Yes Patient : No Physical Exam 2 Vital Signs: Vital Signs: Last Vital Signs Temp 98.4 F 08/01/24 14:31 Pulse 67 08/01/24 14:31 Resp 18 08/01/24 14:31 BP 119/78 08/01/24 14:31 Pulse Ox 98 08/01/24 14:31 O2 Del Method Room Air 08/01/24 14:31 BMI result Body Mass Index 24.8 Const: General: cooperative and comfortable Nutritional Appearance: well nourished Orientation/consciousness: patient oriented x3 Limitations: no limitations HEENT: Head: Yes normal to inspection General nose exam: Normal external nose present Face and sinus: Yes normal facial exam Neck: Neck: Yes normal visual inspection, Yes full ROM and Yes no lymphadenopathy Chest: Chest palpation & inspection: normal inspection of the chest Resp: Effort & Inspection: normal respiratory effort Auscultation: clear to auscultation bilaterally Cardio: Jugular venous distension: no JVD Rate: regular rate Rhythm: r egular rhythm GI: Inspection: Yes normal to inspection Palpation (GI): Soft to palpation, not firm, nontender and no guarding Skin: General skin exam: no rashes or lesions noted and elasticity normal R ashes: no rashes Neuro: General: patient oriented x3 Course Reevaluation(s) Reevaluation #1: On re-examination patient is feeling much better asymptomatic tolerating p.o. well she wants to go home Medications Administered Discontinued Medications Generic Name Dose Route Start Last Admin Trade Name Freq PRN Reason Stop Dose Admin Diphenhydramine HCl 25 mg 08/01/24 11:34 08/01/24 11:44 Diphenhydramine Hcl 50 Mg/Ml Vial IVPUSH 08/01/24 11:35 25 mg ONCE ONE Administration Sodium Chloride 1,000 mls @ 999 mls/hr 08/01/24 10:15 08/01/24 11:02 Ns IVCONT 08/01/24 11:15 999 mls/hr .Q1H1M SRINIVASA Administration Metoclopramide HCl 10 mg 08/01/24 11:34 08/01/24 11:44 Metoclopramide Hcl 10 Mg/2 Ml Vial IVPUSH 08/01/24 11:35 10 mg ONCE ONE Administration Ondansetron HCl 4 mg 08/01/24 10:10 08/01/24 11:02 Ondansetron Hcl 4 Mg/2 Ml Vial IVPUSH 08/01/24 10:11 4 mg ONCE ONE Administration Medical Decision Making Medical Decision Making MDM Narrative: Patient presented with nausea vomiting we will place an IV check lab blood work Differential Diagnosis Differential Diagnoses: The differential diagnosis associated with the presentation includes Colitis/diverticulitis/viral syndrome/cannabinoids abuse Lab Data 08/01/24 10:56 08/01/24 10:56 Labs: Lab Results 08/01/24 Range/Units 10:56 WBC 13.9 H (4.8-10.8) X10*3/uL RBC 4.77 (4.20-5.50) X10*6/uL Hgb 14.8 (12.0-16.0) g/dl Hct 41.7 (37.0-47.0) % MCV 87.4 (80.0-98.0) fL MCH 31.0 (27.0-33.0) pg MCHC 35.5 H (31.0-35.0) g/dl RDW 12.5 (11.0-16.0) % Plt Count 224 (160-400) X10*3/uL MPV 9.3 L (9.4-12.3) fL Immature Gran % (Auto) 0.8 H (0.0-0.4) % Neut % (Auto) 78.6 H (45-73) % Lymph % (Auto) 14.2 L (20-40) % Scurry % (Auto) 6.2 (2-11) % Eos % (Auto) 0.0 (0-4) % Baso % (Auto) 0.2 (0-2) % Lymph # (Auto) 2.0 (1.2-4.9) X10*3/uL Scurry # (Auto) 0.9 (0.1-1.2) X10*3/uL Eos # (Auto) 0.0 (0.0-0.4) X10*3/uL Baso # (Auto) 0.0 (0.0-0.2) X10*3/uL Abs Immat Gran (auto) 0.11 H (0.00-0.03) X10*3/uL Absolute Neuts (auto) 11.0 H (2.0-8.3) x10*3/uL Absolute Nucleated RBC 0.000 (0.0-0.012) X10*3/uL Nucleated RBC % (auto) 0.0 (0.0-0.2) /100WBC Sodium 139 (135-145) mmol/L Potassium 3.1 L (3.3-5.1) mmol/L Chloride 99 (96-108) mmol/L Carbon Dioxide 29 (22-29) mmol/L Anion Gap 14 (12-20) BUN 17 H (9-16) mg/dL Creatinine 0.76 (0.5-1.4) mg/dL Estim Creat Clear Calc 92.1 Estimated GFR > 60 Random Glucose 133 H (60-115) mg/dL Calcium 10.1 (8.4-10.2) mg/dL Total Bilirubin 1.1 H (0.0-1.0) mg/dL Direct Bilirubin 0.3 (0.0-0.5) mg/dL AST 19 (5-31) U/L ALT 17 (0-31) U/L Alkaline Phosphatase 49 (39-117) U/L Total Protein 7.3 (6.5-8.0) g/dL Albumin 4.6 (3.5-5.0) g/dL Beta HCG, Quant < 2 mIU/mL Discharge Plan Discharge Clinical Impression: Vomiting Qualifiers: Vomiting type: unspecified Nausea presence: with nausea Qualified Code(s): R 11.2 - Nausea with vomiting, unspecified Patient Disposition: Home, Self-Care Instructions: Acute Nausea and Vomiting (ED) Prescriptions: New ondansetron 4 mg tablet,disintegrating 4 mg PO Q8H 4 Days Qty: 12 0RF No Action lorazepam [Ativan] 1 mg tablet 1 mg PO BID PRN (Reason: anxiety) Qty: 20 0RF ondansetron 4 mg tablet,disintegrating 4 mg PO Q6-8H PRN (Reason: nausea and vomiting) Qty: 10 0RF ondansetron HCl 4 mg tablet 4 mg PO Q8H PRN (Reason: nausea and vomiting) 4 Days Qty: 10 0RF Stand Alone Forms: Work/School Release Interventions: ED Discharge Assessment Last Done: 08/01/24 14:31 Discharge Date/Time: 08/01/24 14:32 Print Language: Korean
--- NOTE | 2024-08-01 10:31 | PC.NURSE ---
currently sleeping in bed 13.
[2024-08-01] MEDS: 0.9 % Sodium Chloride 1,000 ML 999 ML IVCONT (11:02)
[2024-08-01] MEDS: ondansetron HCL 4 MG/2 ML VIAL IVPUSH (11:02)
[2024-08-01 11:06] LABS: MANUAL DIFF FLAG NO
[2024-08-01 11:09] LABS: Basophils Percent Auto 0.2 % (0-2); Hematocrit 41.7 % (37.0-47.0); Hemoglobin 14.8 g/dl (12.0-16.0); Imm Gran Abs Auto 0.11 X10*3/uL (0.00-0.03); Imm Gran Pct Auto 0.8 % (0.0-0.4); Lymphocytes Percent Auto 14.2 % (20-40); Mean Corpuscular HGB Conc 35.5 g/dl (31.0-35.0); Mean Corpuscular Volume 87.4 fL (80.0-98.0); Mean Platelet Volume 9.3 fL (9.4-12.3); Monocytes Absolute Auto 0.9 X10*3/uL (0.1-1.2); Monocytes Percent Auto 6.2 % (2-11); Neutrophils Percent Auto 78.6 % (45-73); Platelet Count 224 X10*3/uL (160-400); Red Blood Count 4.77 X10*6/uL (4.20-5.50); Red Cell Distribution Width 12.5 % (11.0-16.0); White Blood Count 13.9 X10*3/uL (4.8-10.8)
[2024-08-01 11:13] VITALS: BP 139/84; PULSE 50; RESP 18; TEMP 36.7; O2SAT 100
[2024-08-01 11:30] LABS: Anion Gap 14 (12-20); Blood Urea Nitrogen 17 mg/dL (9-16); Calcium 10.1 mg/dL (8.4-10.2); Carbon Dioxide 29 mmol/L (22-29); Chloride 99 mmol/L (96-108); Creatinine Clr Calc Pharmacy 92.1; Estimated Glomerular Filt Rate > 60; Glucose Random 133 mg/dL (60-115); Potassium 3.1 mmol/L (3.3-5.1); Sodium 139 mmol/L (135-145)
[2024-08-01 11:31] LABS: Alanine Aminotransferase 17 U/L (0-31); Albumin Level 4.6 g/dL (3.5-5.0); Alkaline Phosphatase 49 U/L (39-117); Aspartate Amino Transferase 19 U/L (5-31); Bilirubin Direct 0.3 mg/dL (0.0-0.5); Bilirubin Total 1.1 mg/dL (0.0-1.0); Total Protein 7.3 g/dL (6.5-8.0)
--- NOTE | 2024-08-01 11:32 | PC.NURSE ---
vomiting again. provider aware and additional nausea meds requested.
[2024-08-01 11:36] LABS: HCG Quantitative < 2 mIU/mL
[2024-08-01] MEDS: Metoclopramide HCl 10 MG/2 ML VIAL IVPUSH (11:44)
[2024-08-01] MEDS: diphenhydrAMINE HCL 50 MG/ML VIAL 25 MG IVPUSH (11:44)
[2024-08-01 11:45] VITALS: BP 119/78; PULSE 67; RESP 18; TEMP 36.9; O2SAT 98
[2024-08-01 14:31] VITALS: BP 119/78; PULSE 67; RESP 18; TEMP 36.9; O2SAT 98
== END 2024-08-01 14:32 | disposition home or self-care (01) ==
PROVIDERS: Emergency Provider Emergency Medicine
DX: R11.2 Nausea with vomiting, unspecified (principal); F12.90 Cannabis use, unspecified, uncomplicated
CPT/HCPCS: 36415; 80048; 80076; 84702; 85025; 96374; 96375; 99284; J1200; J2405; J2765